=== PATIENT | male | born 1970 | race Caucasian/White ===

== ENCOUNTER 2017-02-08 22:11 | Emergency (ER) | payer OTHER, SELFPAY ==
[~2017-02-08] VITALS: Ht 177.8 cm; Wt 57.1 kg
[2017-02-08] MEDS ORDERED: IBUPROFEN 200 MG TABLET PO ONE (22:30)
[2017-02-08] MEDS ORDERED: HYDROcodone/APAP 5/325 TABLET PO ONE (22:30)
[2017-02-08] MEDS ORDERED: ONDANSETRON ODT 4 MG PO ONE (22:30)
[2017-02-08] MEDS ORDERED: HYDROcodone/APAP 5/325 TABLET ONE (22:37)
[2017-02-08] MEDS ORDERED: ONDANSETRON ODT 4 MG ONE (22:37)
[2017-02-08] MEDS ORDERED: IBUPROFEN 200 MG TABLET ONE (22:37)
[2017-02-08 22:58] LABS: PATH.CAST-FLAG NOT PRESENT; SPERM-FLAG NOT PRESENT; SRC-FLAG NOT PRESENT; XTAL-FLAG NOT PRESENT; YLC-FLAG NOT PRESENT
[2017-02-08 23:09] LABS: ASPARTATE AMINO TRANSFERASE 27 U/L (15-37); BLOOD UREA NITROGEN 15 mg/dL (7-18)
[2017-02-09] MEDS ORDERED: HYDROmorphone 1 MG/ML, 1ML ONE (00:08)
[2017-02-09] MEDS ORDERED: HYDROmorphone 1 MG/ML, 1ML IM ONE (00:30)
[2017-02-09 00:42] VITALS: BP 140/80
== END 2017-02-09 00:42 | disposition home or self-care (01) ==
LOC: ED 23:59
DX: R31.29 Other microscopic hematuria (principal); K80.70 Calculus of gallbladder and bile duct without cholecystitis without obstruction; F17.210 Nicotine dependence, cigarettes, uncomplicated; I10 Essential (primary) hypertension; Z85.9 Personal history of malignant neoplasm, unspecified
CPT/HCPCS: 36415; 74176; 80053; 81001; 83690; 85025; 96372; 99285; J1170; Q0162

== ENCOUNTER 2017-03-10 19:34 | Emergency (ER) | payer SELFPAY ==
[~2017-03-10] VITALS: Ht 157.5 cm; Wt 55.1 kg
[2017-03-10 20:59] VITALS: BP 155/92
== END 2017-03-10 21:02 | disposition home or self-care (01) ==
LOC: ED 20:45
DX: K02.9 Dental caries, unspecified (principal); I10 Essential (primary) hypertension
CPT/HCPCS: 99283